=== PATIENT | male | born 1975 | race Caucasian/White ===

== ENCOUNTER 2022-03-31 11:34 | Emergency (ER) | payer MEDICAID ==
[~2022-03-31] VITALS: Ht 180.3 cm; Wt 97.7 kg
[2022-03-31] MEDS ORDERED: LIDOcaine 1% W/epiNEPHrine 1:200,000 10ml vial IJ STA (12:59)
[2022-03-31] MEDS ORDERED: LIDOcaine 1% W/epiNEPHrine 1:100,000 20ml vial SQ ONE (13:10)
[2022-03-31 13:43] VITALS: BP 127/74
== END 2022-03-31 14:08 | disposition home or self-care (01) ==
LOC: ER 11:36
DX: T81.31XA Disruption of external operation (surgical) wound, not elsewhere classified, initial encounter (principal); Z90.49 Acquired absence of other specified parts of digestive tract; Y83.8 Other surgical procedures as the cause of abnormal reaction of the patient, or of later complication, without mention of misadventure at the time of the procedure; Y82.8 Other medical devices associated with adverse incidents; Y92.89 Other specified places as the place of occurrence of the external cause
CPT/HCPCS: 99281; 99282; A6449

== ENCOUNTER 2022-04-02 18:08 | Emergency (ER) | payer MEDICAID ==
[~2022-04-02] VITALS: Ht 180.3 cm; Wt 97.7 kg
[2022-04-02] MEDS ORDERED: DOXY-1 PO (20:47)
[2022-04-02 20:59] VITALS: BP 137/78
== END 2022-04-02 21:02 | disposition home or self-care (01) ==
LOC: VAS 18:09
DX: S11.90XA Unspecified open wound of unspecified part of neck, initial encounter (principal); Z48.00 Encounter for change or removal of nonsurgical wound dressing; Z90.49 Acquired absence of other specified parts of digestive tract; Z98.890 Other specified postprocedural states; Z79.2 Long term (current) use of antibiotics; X58.XXXA Exposure to other specified factors, initial encounter; Y93.89 Activity, other specified; Y92.89 Other specified places as the place of occurrence of the external cause; Y99.8 Other external cause status
CPT/HCPCS: 99283; A6407

== ENCOUNTER 2023-07-06 13:47 | Emergency (ER) | payer SELFPAY ==
[~2023-07-06] VITALS: Ht 180.3 cm; Wt 95.5 kg
[2023-07-06 14:39] LABS: BASOPHILS % (AUTO) 0.3 % (0-1); EOSINOPHILS % (AUTO) 0.7 % (0-6); HEMATOCRIT 54.6 % (42.0-52.0); LYMPHOCYTES # (AUTO) 1.2 X10'3 (1.1-4.8); LYMPHOCYTES % (AUTO) 17.1 % (21-51); MEAN CORPUSCULAR HEMOGLOBIN 30.5 PG (27.0-31.0); MEAN CORPUSCULAR HGB CONC 33.2 g/dL (33.0-36.5); MEAN CORPUSCULAR VOLUME 91.8 FL (78-98); MEAN PLATELET VOLUME 8.7 FL (7.4-10.4); MONOCYTES # (AUTO) 0.4 X10'3 (0-0.9); MONOCYTES % (AUTO) 5.8 % (2-12); NEUTROPHILS # (AUTO) 5.2 X10'3 (1.8-7.7); NEUTROPHILS % (AUTO) 76.1 % (42-75); PLATELET COUNT 188 X10'3 (140-440); RED BLOOD COUNT 5.94 X10'6 (4.70-6.10); RED CELL DISTRIBUTION WIDTH 14.8 % (11.5-14.5); WHITE BLOOD COUNT 6.8 X10'3 (4.5-11.0)
[2023-07-06 14:47] LABS: HEMOGLOBIN 18.1 g/dl (14.0-17.9)
[2023-07-06 14:48] LABS: ALANINE AMINOTRANSFERASE 57 U/L (12-78); ALBUMIN 3.8 G/DL (3.4-5.0); ALBUMIN/GLOBULIN RATIO 1.1 (1.1-1.5); ALKALINE PHOSPHATASE 56 IU/L (46-116); ANION GAP 4 (8-16); ASPARTATE AMINO TRANSFERASE 39 U/L (10-37); BILIRUBIN,TOTAL 1.2 MG/DL (0.1-1.0); BLOOD UREA NITROGEN 14 MG/DL (7-18); BUN/CREATININE RATIO 9.7 (10.0-20.0); CALCIUM 11.6 MG/DL (8.5-10.1); CHLORIDE 103 MMOL/L (99-107); CREATININE 1.45 MG/DL (0.60-1.10); GLUCOSE 106 MG/DL (70-104); POTASSIUM 4.3 MMOL/L (3.5-5.1); PRO BRAIN NATRIURETIC PEPTIDE 270 PG/ML (0-125); SODIUM 138 MMOL/L (135-145); TOTAL CARBON DIOXIDE 30.9 MMOL/L (24-32); TOTAL PROTEIN 7.4 G/DL (6.4-8.2); eCRCL 66 ML/MIN; eGFR 52 ML/MIN
[2023-07-06] MEDS ORDERED: CINA30TA2 PO (17:10)
[2023-07-06 17:22] LABS: D-DIMER 0.46 MG/L FEU (0-0.50)
[2023-07-06 18:20] VITALS: BP 172/98; PULSE 72; RESP 16; TEMP 97.5; O2SAT 97
== END 2023-07-06 18:23 | disposition home or self-care (01) ==
LOC: ER 13:48
DX: R06.00 Dyspnea, unspecified (principal); D75.1 Secondary polycythemia; F12.90 Cannabis use, unspecified, uncomplicated; Z79.899 Other long term (current) drug therapy; Z98.890 Other specified postprocedural states
CPT/HCPCS: 36415; 71045; 80053; 83880; 84145; 84484; 85025; 85379; 93005; 99285

== ENCOUNTER 2024-05-13 13:44 | Emergency (ER) | payer MEDICAID ==
[~2024-05-13] VITALS: Ht 180.3 cm; Wt 96.4 kg
[~2024-05-13 13:44] MED LIST: CINA30TA2 PO
[2024-05-13 14:09] VITALS: TEMP 98.6
[2024-05-13 15:18] LABS: BASOPHILS % (AUTO) 0.5 % (0-1); EOSINOPHILS # (AUTO) 0.1 X10'3 (0-0.9); EOSINOPHILS % (AUTO) 2.3 % (0-6); HEMATOCRIT 49.3 % (42.0-52.0); HEMOGLOBIN 16.3 g/dl (14.0-17.9); LYMPHOCYTES # (AUTO) 1.3 X10'3 (1.1-4.8); LYMPHOCYTES % (AUTO) 23.4 % (21-51); MEAN CORPUSCULAR HEMOGLOBIN 29.4 PG (27.0-31.0); MEAN CORPUSCULAR VOLUME 89.1 FL (78-98); MEAN PLATELET VOLUME 9.1 FL (7.4-10.4); MONOCYTES # (AUTO) 0.6 X10'3 (0-0.9); MONOCYTES % (AUTO) 9.6 % (2-12); NEUTROPHILS # (AUTO) 3.7 X10'3 (1.8-7.7); NEUTROPHILS % (AUTO) 64.2 % (42-75); PLATELET COUNT 181 X10'3 (140-440); RED BLOOD COUNT 5.54 X10'6 (4.70-6.10); RED CELL DISTRIBUTION WIDTH 13.5 % (11.5-14.5); WHITE BLOOD COUNT 5.8 X10'3 (4.5-11.0)
[2024-05-13 15:24] LABS: ALANINE AMINOTRANSFERASE 49 U/L (12-78); ALBUMIN 4.3 G/DL (3.4-5.0); ALBUMIN/GLOBULIN RATIO 1.2 (1.1-1.5); ALKALINE PHOSPHATASE 46 IU/L (46-116); ANION GAP 6 (8-16); ASPARTATE AMINO TRANSFERASE 25 U/L (10-37); BILIRUBIN,TOTAL 0.8 MG/DL (0.1-1.0); BLOOD UREA NITROGEN 21 MG/DL (7-18); BUN/CREATININE RATIO 14.1 (10.0-20.0); CALCIUM 11.7 MG/DL (8.5-10.1); CHLORIDE 104 MMOL/L (99-107); CREATININE 1.49 MG/DL (0.60-1.10); GLUCOSE 86 MG/DL (70-104); POTASSIUM 4.8 MMOL/L (3.5-5.1); SODIUM 138 MMOL/L (135-145); TOTAL CARBON DIOXIDE 28.5 MMOL/L (24-32); eCRCL 65 ML/MIN; eGFR 50 ML/MIN
[2024-05-13 15:35] LABS: FREE T4 (FREE THYROXINE) 0.87 NG/DL (0.73-1.40); THYROID STIMULATING HORMONE 1.16 ulU/ml (0.34-4.50)
[2024-05-13] MEDS: normal saline 1000ml 1,000 ML IV ONE ×2 (17:03)
[2024-05-13 18:15] VITALS: BP 144/90; PULSE 62; RESP 16; O2SAT 100
== END 2024-05-13 18:27 | disposition home or self-care (01) ==
LOC: ER 13:45
DX: E83.52 Hypercalcemia (principal); R79.9 Abnormal finding of blood chemistry, unspecified; G47.30 Sleep apnea, unspecified; Z95.0 Presence of cardiac pacemaker; F12.90 Cannabis use, unspecified, uncomplicated; Z98.890 Other specified postprocedural states; Z79.899 Other long term (current) drug therapy
CPT/HCPCS: 36415; 80053; 84439; 84443; 85025; 96360; 99283; J7030

== ENCOUNTER 2025-10-06 18:33 | Emergency (ER) | payer MEDICAID ==
[~2025-10-06] VITALS: Ht 162.6 cm; Wt 97.5 kg
[2025-10-06 18:49] VITALS: BP 137/74; PULSE 77; RESP 16; TEMP 98.8; O2SAT 98
--- NOTE | 2025-10-06 18:58 | Physician Documentation ---
History of Present Illness ~ Chief Complaint: Flank Pain Stated Complaint: KIDNEY PAIN Time Seen by MD: 11:57 Primary Medical Doctor: Dr. Joseph [facility] This is a 50-year-old male history of hyperparathyroid who presents with two weeks of progressively worsening lumbar back and flank pain with a feeling of dehydration. Patient reports no fevers, dysuria, or hematuria. Reports no new weakness or numbness in legs, no saddle paresthesias, no recent trauma, no loss of bowel or bladder control, and no history of IV drug use, tuberculosis, or cancer. Medication Reconciliation Allergies: Coded Allergies: No Known Allergies (Unverified , 10/06/25) Scheduled Cinacalcet HCl (Sensipar), 1 TAB PO BID Past Medical History Past Medical History: *CARDIOVASCULAR*, Sleep Apnea, Hyperparathyroidism Past Surgical History: appendectomy, pacemaker, tonsillectomy Drug Use: marijuana Lives with: Spouse Lives In: Home Review of Systems ROS As stated above in the HPI, otherwise all systems are reviewed and negative. Physical Exam Vital Signs: Temperature: 98.8, Source: Temporal, Heart Rate: 77, Respiratory Rate: 16, BP: 137/74, Pulse Oximetry: 98, Weight: 97.500 Oxygen Flow Rate: 0 Physical Exam VITALS: Reviewed and as above. GENERAL: Alert, nontoxic appearing, no apparent distress. RESPIRATORY: No increased work of breathing, no respiratory distress, speaking in full clear sentences BACK: No CVA tenderness, no central spinal tenderness Progress Progress Note On reassessment patient reported after sitting in ED lobby chair pain radiating in right leg, given these findings increased suspicion for lumbar back pain. Results/Orders Results/Orders Vital Signs 10/06/25 18:49 Temp 98.8 Pulse 77 Resp 16 B/P (MAP) 137/74 Pulse Ox 98 O2 Flow Rate 0 Laboratory Tests Test 10/06/25 18:53 10/06/25 19:10 Urine Specimen Description Cln catch midstream Urine Color Yellow Urine Clarity Clear Urine pH 7.5 Urine Specific [place] 1.020 Urine Protein Negative Urine Glucose (UA) Negative Urine Ketones Negative Urine Occult Blood Negative Urine Nitrite Negative Urine Bilirubin Negative Urine Urobilinogen 0.2 Urine Leukocyte Esterase Negative Urine Culture Indicated Not ind Volume Urine Centrifuged 10 ml Urine Comment White Blood Count 5.3 Red Blood Count 4.13 L Hemoglobin 13.1 L Hematocrit 38.9 L Mean Corpuscular Volume 94.2 Mean Corpuscular Hemoglobin 31.6 H Mean Corpuscular Hemoglobin Concent 33.6 Red Cell Distribution Width 15.4 H Platelet Count 194 Mean Platelet Volume 8.3 Neutrophils (%) (Auto) 65.6 Lymphocytes (%) (Auto) 22.2 Monocytes (%) (Auto) 7.9 Eosinophils (%) (Auto) 3.6 Basophils (%) (Auto) 0.7 Neutrophils # (Auto) 3.5 Lymphocytes # (Auto) 1.2 Monocytes # (Auto) 0.4 Eosinophils # (Auto) 0.2 Basophils # (Auto) 0.0 CBC Comment Sodium Level 144 Potassium Level 3.9 Chloride Level 110 H Carbon Dioxide Level 30.1 Anion Gap 4 L Blood Urea Nitrogen 18 Creatinine 1.40 H Estimated GFR/1.73 m2 54 BUN/Creatinine Ratio 12.9 Glucose Level 94 Calcium Level 11.0 H Total Bilirubin 0.4 Aspartate Amino Transf (AST/SGOT) 31 Alanine Aminotransferase (ALT/SGPT) 100 H Alkaline Phosphatase 99 Total Protein 6.9 Albumin 3.8 Globulin 3.1 Albumin/Globulin Ratio 1.2 Lipase 58 Chemistry Comments Medical Decision Making Findings MSE performed in triage and patient returned to ED lobby by nursing staff to await available ED room This is an otherwise healthy, well appearing 50-year-old male presented with two weeks of lumbar back pain with radiation to right leg after sitting in chair in ED lobby. Patients does not have any high-risk features on history trauma, IVDA, cancer, significant weight loss or history of TB, and the patient has a normal neurologic exam without fever, severe or progressive neurologic deficits, new or worsening urinary retention, urinary/stool incontinence or decreased perineal sensation; therefore imaging was not indicated in the ED. I doubt spinal fracture, epidural hematoma, epidural abscess, unstable spinal pathology, emergent renal or aortic pathology, or spinal cord compression. Patient declined pain medication in the emergency department as he reports he has pain medications at home. While patient reported a feeling of dehydration lab work did not demonstrate evidence of clinical dehydration. Upon discharge, the patients pain was controlled, and the patient was ambulatory without a risk of falling. Return precautions were discussed including worsening pain, new/worsening weakness/numbness, difficulty urinating, or incontinence. Diff Dx GI Bleed:Consideration: Include: Gastritis, Gastroenteritis, Inflammatory BD Diff Dx Pain:Considerations: Include: Appendicitis, Bowel obstruction, Cholangitis, Cholelithasis, Constipation, Inflammatory BD, Ischemic bowel, Mass, Urinary obstruction, Urinary tract infection, Urolithiasis, Other (Cauda equina, spinal fracture, spinal epidural abscess, ) Diff Dx N/V/D:Considerations: Include: Appendicitis, Diverticulosis, Inflammatory BD, Urolithiasis Diff Dx Rectal:Considerations: Unlikely: Fissure, Fistula, Foreign body, Impaction, Perirectal abscess, Prostatitis, Rectal prolapse, Subcutaneous abscess, Thrombosed hemorrhoid, Ulcer, UTI, Other Departure Time of Disposition: 23:52 Disposition: 01 HOME / SELF CARE / HOMELESS Impression: Primary Impression: Low back pain Qualified Codes: M54.41 - Lumbago with sciatica, right side Condition: Improved Discharge Instructions: Acute Back Pain, Adult Additional Instructions: Your lab work was reassuring, as we discussed your symptoms appear to be back pain related though not all possibilities has been ruled out I recommend you falling up with your primary care provider. Please follow up with your primary care provider in the next few days. Please return to the emergency department f or any new or worsening concerning symptoms including but not limited to new weakness or numbness in your legs or loss of bowel or bladder control. Referrals: NO PRIMARY CARE PROVIDER (PCP) Education Educated: Patient Educated regarding: diagnosis, treatment, prognosis, need for follow up Signature Scribe Signature: No scribe Attestation: The note accurately reflects work and decisions made by me.RADHA Pearce 10/07/25 02:13 CARY HUNT Oct 06, 2025 18:58
[2025-10-06 19:30] LABS: MEAN PLATELET VOLUME 8.3 FL (7.4-10.4); RED CELL DISTRIBUTION WIDTH 15.4 % (11.5-14.5)
[2025-10-06 19:33] LABS: LEUKOCYTE ESTERASE ,URINE NEGATIVE (Neg); NITRITES, URINE NEGATIVE (Neg); OCCULT BLOOD,URINE NEGATIVE (Neg)
[2025-10-06 19:42] LABS: UA COLLECTION TYPE CLN CATCH MIDSTREAM
[2025-10-06 19:48] LABS: CREATININE 1.40 MG/DL (0.60-1.10); TOTAL CARBON DIOXIDE 30.1 MMOL/L (24-32); eCRCL 53 ML/MIN; eGFR 54 ML/MIN
== END 2025-10-07 00:02 | disposition left against medical advice (07) ==
LOC: ER 18:34
DX: G47.30 Sleep apnea, unspecified (principal); M54.50 Low back pain, unspecified; E21.3 Hyperparathyroidism, unspecified; F12.90 Cannabis use, unspecified, uncomplicated; Z90.89 Acquired absence of other organs; Z90.49 Acquired absence of other specified parts of digestive tract; Z95.0 Presence of cardiac pacemaker
CPT/HCPCS: 36415; 80053; 81003; 83690; 85025; 99283